=== PATIENT | female | born 1965 | race Hispanic/Latino ===

== ENCOUNTER → 2019-07-10 | Outpatient (CLI) | payer BC ==
[~2019-07-10] MED LIST: BUPR348T PO; CETI10CA5 PO; COLE625 PO; IOHEXOL-350 50ML VIAL IV ONE; METF-444 PO; VALA500T42 PO; VIT1TABL66 PO
== END | disposition home or self-care (01) ==
LOC: RAH 12:32
PROVIDERS: ATTEND Family Medicine
DX: R91.1 Solitary pulmonary nodule (principal); K76.0 Fatty (change of) liver, not elsewhere classified; Z90.49 Acquired absence of other specified parts of digestive tract
CPT/HCPCS: 71270; Q9967